=== PATIENT | male | born 1955 | race Hispanic/Latino ===

== ENCOUNTER 2020-08-07 12:33 | Emergency (ER) | payer SELFPAY ==
[2020-08-07 14:18] LABS: Absolute Lymphocytes (CBC) 1.3 K/uL (0.7-4.9); Basophils % 1.1 % (0-1.3); Hematocrit 44.3 % (39.6-49.0); Lymphocytes % 17.3 % (15.3-44.8); MPV 9.3 fL (7.6-11.3); RBC Red Blood Cell Count 4.81 M/uL (4.33-5.43)
[2020-08-07 14:25] LABS: Protime INR 1.04
[2020-08-07] MEDS ORDERED: AMLODIPINE 5 MG TAB ONE (14:41)
[2020-08-07] MEDS ORDERED: lisinopriL 10 MG TAB ONE (14:41)
[2020-08-07] MEDS ORDERED: hydroCHLOROthiazide 25 MG TAB ONE (14:42)
[2020-08-07 14:53] LABS: Albumin 3.6 g/dL (3.4-5.0); Bilirubin Direct 0.2 mg/dL (0-0.2); Bilirubin Total 0.5 mg/dL (0.2-1.0); Magnesium 2.5 mg/dL (1.8-2.4); Potassium 3.5 mmol/L (3.5-5.1); Protein, Total 7.7 g/dL (6.4-8.2)
--- NOTE | 2020-08-07 15:35 | EDPHYS ---
Physician Documentation [facility] Name: Kristian Elliott Age: 64 yrs Sex: Male : 1955 Arrival Date: 08/07/2020 Time: 12:35 Bed 2 Private MD: ED Physician Moises Cabrera HPI: 08/07 15:43 This 64 yrs old Male presents to ER via Ambulatory with complaints of Flu kb Symptoms. 15:43 The patient or guardian reports cough, that is intermittent, described as mild, with no kb sputum. Onset: The symptoms/episode began/occurred yesterday. Severity of symptoms: At their worst the symptoms were mild, in the emergency department the symptoms are unchanged. Modifying factors: The symptoms are alleviated by nothing, the symptoms are aggravated by nothing. Associated signs and symptoms: Pertinent positives: rhinorrhea, Pertinent negatives: chest pain, diarrhea, ear ache, fever, nausea, sore throat, vomiting. The patient has not experienced similar symptoms in the past. The patient has not recently seen a physician. Pt reports cough and runny nose that started yesterday. States he lives with his parents so he wanted to make sure it wasn't covid. States he has high blood pressure and is supposed to take medication, but he ran out of medication so he hasn't taken it in over a year. Denies chest pain, dizziness, headache, lightheadedness. Pt is asymptomatic of BP. Historical: - Allergies: 12:57 PENICILLINS; ca1 - Home Meds: 12:57 None [Active]; ca1 - PMHx: 12:57 Hypertension; ca1 - PSHx: 12:57 None; ca1 - Immunization history:: Adult Immunizations up to date, Flu vaccine is not up to date. - Social history:: Smoking status: Patient reports the use of cigarette tobacco products, denies chronic smoking, but will smoke occasionally. ROS: 15:42 Constitutional: Negative for fever, chills, and weight loss, Cardiovascular: Negative kb for chest pain, palpitations, and edema, Abdomen/GI: Negative for abdominal pain, nausea, vomiting, diarrhea, and constipation, Back: Negative for injury and pain, MS/Extremity: Negative for injury and deformity, Skin: Negative for injury, rash, and discoloration, Neuro: Negative for headache, weakness, numbness, tingling, and seizure. 15:42 ENT: Positive for rhinorrhea. 15:42 Respiratory: Positive for cough, Negative for dyspnea on exertion, hemoptysis, orthopnea, pleurisy, shortness of breath, sputum production, wheezing. Exam: 14:16 Constitutional: This is a well developed, well nourished patient who is awake, alert, kb and in no acute distress. Head/Face: Normocephalic, atraumatic. Chest/axilla: Normal chest wall appearance and motion. Nontender with no deformity. No lesions are appreciated. Cardiovascular: Regular rate and rhythm with a normal S1 and S2. No gallops, murmurs, or rubs. Normal PMI, no JVD. No pulse deficits. Abdomen/GI: Soft, non-tender, with normal bowel sounds. No distension or tympany. No guarding or rebound. No evidence of tenderness throughout. Back: No spinal tenderness. No costovertebral tenderness. Full range of motion. Skin: Warm, dry with normal turgor. Normal color with no rashes, no lesions, and no evidence of cellulitis. MS/ Extremity: Pulses equal, no cyanosis. Neurovascular intact. Full, normal range of motion. Neuro: Awake and alert, GCS 15, oriented to person, place, time, and situation. Cranial nerves II-XII grossly intact. Motor strength 5/5 in all extremities. Sensory grossly intact. Cerebellar exam normal. Normal gait. 14:16 ECG was reviewed by the Attending Physician. 14:18 Respiratory: the patient does not display signs of respiratory distress, Respirations: kb normal, Breath sounds: rhonchi, that are mild, are located in both bases. Vital Signs: 12:53 BP 221 / 147 LA; Pulse 92; Resp 18 S; Temp 97(TE); Pulse Ox 100% on R/A; Weight 72.12 ca1 kg (R); Height 5 ft. 6 in. (167.64 cm); Pain 0/10; 12:53 BP 225 / 147 RA; ca1 13:44 BP 222 / 158; Pulse 86; Resp 16; Pulse Ox 100% on R/A; iw 14:35 BP 203 / 130; Pulse 79; iw 15:28 BP 214 / 126; Pulse 79; Resp 16; Pulse Ox 100% on R/A; iw 12:53 Body Mass Index 25.66 (72.12 kg, 167.64 cm) ca1 MDM: 13:35 Patient medically screened. kb 14:16 Data reviewed: vital signs, nurses notes. Data interpreted: Pulse oximetry: on room air kb is 100 %. Interpretation: normal. 15:42 Counseling: I had a detailed discussion with the patient and/or guardian regarding: the kb historical points, exam findings, and any diagnostic results supporting the discharge/admit diagnosis, lab results, radiology results, the need for outpatient follow up, a family practitioner, to return to the emergency department if symptoms worsen or persist or if there are any questions or concerns that arise at home. 15:46 ED course: Pt given strict return precautions. New prescriptions given for medications kb that he was previously prescribed for management of hypertension. Pt still asymptomatic of BP. . 08/07 13:55 Order name: Basic Metabolic Panel; Complete Time: 14:55 kb 08/07 13:55 Order name: CBC with Diff; Complete Time: 14:24 kb 08/07 13:55 Order name: LFT's; Complete Time: 14:55 kb 08/07 13:55 Order name: Magnesium; Complete Time: 14:55 kb 08/07 13:55 Order name: NT PRO-BNP; Complete Time: 14:55 kb 08/07 13:55 Order name: PT-INR; Complete Time: 14:30 kb 08/07 13:55 Order name: EKG; Complete Time: 13:56 kb 08/07 13:55 Order name: Cardiac monitoring; Complete Time: 14:36 kb 08/07 13:55 Order name: Flu; Complete Time: 14:55 kb 08/07 13:55 Order name: Chest Single View XRAY kb 08/07 14:56 Order name: COVID-19 kb 08/07 13:55 Order name: EKG - Nurse/Tech; Complete Time: 14:11 kb 08/07 13:55 Order name: IV Saline Lock; Complete Time: 14:36 kb 08/07 13:55 Order name: Labs collected and sent; Complete Time: 14:36 kb 08/07 13:55 Order name: O2 Per Protocol; Complete Time: 14:36 kb 08/07 13:55 Order name: O2 Sat Monitoring; Complete Time: 14:36 kb 08/07 13:56 Order name: Misc. Order: [facility] in [place] to find out what HTN kb medication pt was previously prescribed; Complete Time: 14:25 EC:16 Rate is 77 beats/min. Rhythm is regular. QRS [place] is Normal. VT interval is normal at kb 184 msec. QRS interval is normal at 96 msec. QT interval is normal at 412 msec. Administered Medications: 14:30 Drug: amLODIPine 5 mg Route: PO; iw 14:30 Drug: Hydrochlorothiazide 25 mg Route: PO; iw 14:30 Drug: Lisinopril 30 mg Route: PO; iw Disposition: 16:09 Co-signature as Attending Physician, Moises Cabrera MD I agree with the assessment and kdr plan of care. Disposition: 08/07/20 15:34 Discharged to Home. Impression: Acute upper respiratory infection, unspecified, Essential (primary) hypertension. - Condition is Stable. - Discharge Instructions: Hypertension, Uush-hl-[id number], Viral Respiratory Infection, [id number]-[id number], DASH Eating Plan, Managing Your Hypertension, COVID-19. - Prescriptions for lisinopril 30 mg Oral tablet - take 1 tablet by ORAL route once daily; 20 tablet. Norvasc 5 mg Oral Tablet - take 1 tablet by ORAL route once daily; 20 tablet. Hydrochlorothiazide 25 mg Oral Tablet - take 1 tablet by ORAL route once daily .; 30 tablet. - Medication Reconciliation Form, Thank You Letter, Antibiotic Education, Prescription Opioid Use form. - Follow up: Emergency Department; When: As needed; Reason: Worsening of condition. Follow up: Private Physician; When: 2 - 3 days; Reason: Recheck today's complaints, Continuance of care, Re-evaluation by your physician. Signatures: Dispatcher [employer] EDGA Romi Land, PEREZ PADILLA-Moises Law MD MD kdr Williams, Irene, RN RN iw Ainsley Waldrop RN RN ca1 Corrections: (The following items were deleted from the chart) 15:50 15:34 08/07/2020 15:34 Discharged to Home. Impression: Acute upper respiratory iw infection, unspecified; Essential (primary) hypertension. Condition is Stable. Forms are Medication Reconciliation Form, Thank You Letter, Antibiotic Education, Prescription Opioid Use. Follow up: Emergency Department; When: As needed; Reason: Worsening of condition. Follow up: Private Physician; When: 2 - 3 days; Reason: Recheck today's complaints, Continuance of care, Re-evaluation by your physician. kb
--- NOTE | 2020-08-07 15:35 | ER ---
Nurse's Notes [facility] Name: Kristian Elliott Age: 64 yrs Sex: Male : 1955 Arrival Date: 08/07/2020 Time: 12:35 Bed 2 Private MD: Diagnosis: Acute upper respiratory infection, unspecified;Essential (primary) hypertension Presentation: 08/07 12:53 Chief complaint:. Coronavirus screen: Client denies travel out of the [place] in the last ca1 14 days. congestion, cough unrelated to allergies, Client presents with at least one sign or symptom that may indicate coronavirus-19. Standard/surgical mask placed on the client. Provider contacted for isolation considerations. Ebola Screen: Patient negative for fever greater than or equal to 101.5 degrees Fahrenheit, and additional compatible Ebola Virus Disease symptoms Patient denies exposure to infectious person. Patient denies travel to an Ebola-affected area in the 21 days before illness onset. No symptoms or risks identified at this time. Initial Sepsis Screen: Does the patient meet any 2 criteria? No. Patient's initial sepsis screen is negative. Does the patient have a suspected source of infection? No. Patient's initial sepsis screen is negative. Risk Assessment: Do you want to hurt yourself or someone else? Patient reports no desire to harm self or others. Onset of symptoms was August 07, 2020. 12:53 Method Of Arrival: Ambulatory ca1 12:53 Acuity: KIERAN 2 ca1 Historical: - Allergies: 12:57 PENICILLINS; ca1 - Home Meds: 12:57 None [Active]; ca1 - PMHx: 12:57 Hypertension; ca1 - PSHx: 12:57 None; ca1 - Immunization history:: Adult Immunizations up to date, Flu vaccine is not up to date. - Social history:: Smoking status: Patient reports the use of cigarette tobacco products, denies chronic smoking, but will smoke occasionally. Screenin:44 Abuse screen: Denies threats or abuse. Denies injuries from another. Nutritional iw screening: No deficits noted. Tuberculosis screening: No symptoms or risk factors identified. Fall Risk None identified. Assessment: 13:43 General: Appears in no apparent distress. Behavior is calm, cooperative. Pain: Denies iw pain. Neuro: Level of Consciousness is awake, alert, obeys commands, Oriented to person, place, time, situation, Moves all extremities. Full function. Cardiovascular: Patient's skin is warm and dry. Respiratory: Respiratory effort is even, unlabored, Respiratory pattern is regular, symmetrical. Respiratory: Reports cough that is productive. GI: Abdomen is non-distended. Derm: Skin is intact, is healthy with good turgor. Musculoskeletal: No signs and/or symptoms reported regarding the musculoskeletal system. Range of motion: intact in all extremities. 15:14 Reassessment: Patient appears in no apparent distress at this time. Patient and/or iw family updated on plan of care and expected duration. Pain level reassessed. Patient is alert, oriented x 3, equal unlabored respirations, skin warm/dry/pink. pt still hypertensive. Vital Signs: 12:53 BP 221 / 147 LA; Pulse 92; Resp 18 S; Temp 97(TE); Pulse Ox 100% on R/A; Weight 72.12 ca1 kg (R); Height 5 ft. 6 in. (167.64 cm); Pain 0/10; 12:53 BP 225 / 147 RA; ca1 13:44 BP 222 / 158; Pulse 86; Resp 16; Pulse Ox 100% on R/A; iw 14:35 BP 203 / 130; Pulse 79; iw 15:28 BP 214 / 126; Pulse 79; Resp 16; Pulse Ox 100% on R/A; iw 12:53 Body Mass Index 25.66 (72.12 kg, 167.64 cm) ca1 ED Course: 12:35 Patient arrived in ED. ag5 12:57 Triage completed. ca1 12:57 Arm band placed on right wrist. ca1 13:35 [facility] kb 13:35 Moises Cabrera MD is Attending Physician. kb 13:41 Shea Villanueva, CHRISTAL is Primary Nurse. iw 13:45 Patient has correct armband on for positive identification. iw 14:08 Initial lab(s) drawn, by me, sent to lab. Inserted saline lock: 20 gauge in right iw antecubital area, using aseptic technique. Blood collected. 14:11 EKG done, by ED staff, reviewed by Romi TODD. em1 14:54 Chest Single View XRAY In Process Unspecified. EDMS 15:49 No provider procedures requiring assistance completed. IV discontinued, intact, iw bleeding controlled, No redness/swelling at site. Pressure dressing applied. Administered Medications: 14:30 Drug: amLODIPine 5 mg Route: PO; iw 14:30 Drug: Hydrochlorothiazide 25 mg Route: PO; iw 14:30 Drug: Lisinopril 30 mg Route: PO; iw Outcome: 15:34 Discharge ordered by . carisa 15:49 Discharged to home ambulatory. iw 15:49 Condition: good 15:49 Discharge instructions given to patient, Instructed on discharge instructions, follow up and referral plans. medication usage, Demonstrated understanding of instructions, follow-up care, medications, Prescriptions given X 2. 15:50 Patient left the ED. iw Addendum: 08/09/2020 15:36 Addendum: COVID-19 Result: Negative result given to RN to notify pt. Attempted to i w contact pt regarding negative COVID-19 swab results. Left voice mail. Signatures: Dispatcher [employer] EDMS Romi Land, VALERIE-C VALERIE-Shea Lynne RN RN iw Alexis Maria em1 Ainsley Waldrop RN RN ca1 Mary Sheth ag5 Corrections: (The following items were deleted from the chart) 1202 12:58 12:53 Acuity: KIERAN 3 ca1 ca1 12:58 12:53 Pulse 92bpm; Resp 18bpm; Spontaneous; Pulse Ox 100% RA; Temp 97F Temporal; 72.12 ca1 kg Reported; Height 5 ft. 6 in.; BMI: 25.6; Pain 0/10; ca1 12:59 12:53 BP 221 / 147; Pulse 92bpm; Resp 18bpm; Spontaneous; Pulse Ox 100% RA; Temp 97F ca1 Temporal; 72.12 kg Reported; Height 5 ft. 6 in.; BMI: 25.6; Pain 0/10; ca1
--- NOTE | 2020-08-07 15:57 | RAD REPORT ---
EXAM DESCRIPTION: RAD - Chest Single View - 08/07/2020 2:54 pm CLINICAL HISTORY: COUGH COMPARISON: October 2016 TECHNIQUE: AP portable chest image was obtained 08/07/2020 2:54 pm . FINDINGS: Lungs are clear. Heart size is upper normal, increased from the prior study. Heart size is accentuated by shallow inspiratory effort. Shallow inspiration also causes increased tortuosity of t he aorta. Interstitial pattern is not clearly different when adjusting for inspiratory effort. No kristine surable pleural effusion and no pneumothorax. No acute bony abnormality seen. No acute aortic finding s suspected. IMPRESSION: No acute lung parenchymal process. No failure or volume overload. Heart size is accentuated by shallow inspiration slight amount of rotation.
--- NOTE | 2020-08-08 06:09 | EKG ---
Test Date: 2020-08-07 Test Time: 14:06:05 Scrap Piler: DIANNA MEASUREMENT RESULTS: Intervals: Rate: 77 MN: 184 QRSD: 96 QT: 412 QTc: 466 Dawn: P: 46 MN: 184 QRS: -1 T: -17 INTERPRETIVE STATEMENTS: Normal sinus rhythm Left ventricular hypertrophy with repolarization abnormality Abnormal ECG Compared to ECG 10/21/2016 11:10:24 Early repolarization now present Left-axis deviation no longer present Myocardial infarct finding no longer present ST (T wave) deviation no longer present Possible ischemia no longer present Electronically Signed On 08-08-20 06:07:20 CRUSHING MILL OPERATOR by Derek Huang
== END 2020-08-07 15:50 | disposition home or self-care (01) ==
LOC: ER 12:33
DX: J06.9 Acute upper respiratory infection, unspecified (principal); Z20.828 Contact with and (suspected) exposure to other viral communicable diseases; I10 Essential (primary) hypertension; F17.210 Nicotine dependence, cigarettes, uncomplicated; Z88.0 Allergy status to penicillin
CPT/HCPCS: 36415; 71045; 80048; 80076; 83735; 83880; 85025; 85610; 87804; 93005; 99284; U0002

== ENCOUNTER 2020-08-11 19:58 | Emergency (ER) | payer OTHER, SELFPAY ==
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
[2020-08-11 21:28] LABS: Absolute Lymphocytes (CBC) 1.3 K/uL (0.7-4.9); Basophils % 0.6 % (0-1.3); Hematocrit 44.8 % (39.6-49.0); MPV 9.6 fL (7.6-11.3); RBC Red Blood Cell Count 4.82 M/uL (4.33-5.43)
[2020-08-11 21:54] LABS: Potassium 3.4 mmol/L (3.5-5.1)
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
[2020-08-15 15:44] VITALS: TEMP 98.1; O2SAT 98
[2020-08-15 15:46] VITALS: BP 158/89
== END 2020-08-11 22:45 | disposition home or self-care (01) ==
LOC: ER 19:58
DX: R41.82 Altered mental status, unspecified (principal); Z20.828 Contact with and (suspected) exposure to other viral communicable diseases; V49.49XA Driver injured in collision with other motor vehicles in traffic accident, initial encounter; I10 Essential (primary) hypertension; F17.210 Nicotine dependence, cigarettes, uncomplicated; Z88.0 Allergy status to penicillin
CPT/HCPCS: 36415; 70450; 72125; 80048; 80320; 85025; 86850; 86900; 86901; 99284

== ENCOUNTER 2021-03-11 19:29 | Emergency (ER) | payer SELFPAY ==
[2021-03-11 23:11] LABS: Absolute Lymphocytes (CBC) 1.8 K/uL (0.7-4.9); Hematocrit 41.1 % (39.6-49.0); Lymphocytes % 28.1 % (15.3-44.8); MPV 9.1 fL (7.6-11.3)
[2021-03-11 23:17] LABS: Protime INR 0.95
[2021-03-11] MEDS ORDERED: ONDANSETRON 4 MG/2 ML VIAL ONE (23:19)
[2021-03-11] MEDS ORDERED: MORPHINE 4 MG/ML SYR ONE (23:19)
[2021-03-11 23:33] LABS: ALT/SGPT 16 U/L (12-78); AST/SGOT 12 U/L (15-37); Albumin 3.5 g/dL (3.4-5.0); Alkaline Phosphatase 62 U/L (45-117); BUN Blood Urea Nitrogen 17 mg/dL (7-18); Bicarbonate 29 mmol/L (21-32); Bilirubin Direct < 0.1 mg/dL (0-0.2); Bilirubin Total 0.3 mg/dL (0.2-1.0); Glucose Level 92 mg/dL (74-106); Potassium 3.4 mmol/L (3.5-5.1); Protein, Total 7.4 g/dL (6.4-8.2); Sodium Level 141 mmol/L (136-145)
[2021-03-11 23:43] LABS: Urine Blood Negative (Negative); Urine Glucose Negative (Negative); Urine Protein Negative (Negative); Urine Specific Gravity 1.015 (1.005-1.030); Urine pH 5.5 (5.0-7.0)
--- NOTE | 2021-03-12 01:06 | ER ---
Nurse's Notes [facility] Name: Kristian Elliott Age: 65 yrs Sex: Male : 1955 Arrival Date: 03/11/2021 Time: 19:33 Bed 27 Private MD: Diagnosis: Fall-Mechanical;Abrasion, Bilateral Knee;Contusion, Back;Sprain, Back Presentation: 03/11 19:48 Chief complaint: Patient states: Pt fell 03/08/2021 at the [facility] parking lot; fell vg1 onto CYNTHIA knees and CYNTHIA hands; denies hitting head. Today pt Lower Back began hurting. Coronavirus screen: Client denies travel out of the [place] in the last 14 days. Ebola Screen: Patient negative for fever greater than or equal to 101.5 degrees Fahrenheit, and additional compatible Ebola Virus Disease symptoms. Initial Sepsis Screen: Does the patient meet any 2 criteria? No. Patient's initial sepsis screen is negative. Does the patient have a suspected source of infection? No. Patient's initial sepsis screen is negative. Risk Assessment: Do you want to hurt yourself or someone else? Patient reports no desire to harm self or others. Onset of symptoms was March 08, 2021. 19:48 Method Of Arrival: Ambulatory vg1 19:48 Acuity: KIERAN 3 vg1 03/12 04:58 Care prior to arrival: None. Mechanism of Injury: Fall from standing position. Trauma ad1 event details: Injury occurred in the [facility], Injury occurred: parking lot of [facility]. Triage Assessment: 03/11 19:50 General: Appears in no apparent distress. comfortable, Behavior is calm, cooperative. vg1 Pain: Complains of pain in CYNTHIA knees and lower back. Historical: - Allergies: 19:50 PENICILLINS; vg1 - Home Meds: 19:50 lisinopril Oral [Active]; vg1 - PMHx: 19:50 Hypertension; vg1 - Immunization history:: Adult Immunizations up to date, Client reports receiving the 2nd dose of the Covid vaccine. - Social history:: Smoking status: Patient reports the use of cigarette tobacco products, smokes one pack cigarettes per day. Screenin/07 04:55 Abuse screen: Denies threats or abuse. Tuberculosis screening: No symptoms or risk ad1 factors identified. Primary Survey: 04:58 NO uncontrolled hemorrhage observed. A: Airway: patent. Breathing/Chest: Respiratory ad1 pattern: regular, Respiratory effort: no effort. Assessment: 03/11 22:29 General: Appears in no apparent distress. Behavior is calm, cooperative. Pain: ad1 Complains of pain in lower back Pain does not radiate. Pain currently is 8 out of 10 on a pain scale. Pain began Wednesday Aggravated by activity. Neuro: No deficits noted. EENT: No deficits noted. Cardiovascular: Heart tones S1 S2. Respiratory: No deficits noted. Breath sounds are clear. GI: No signs and/or symptoms were reported involving the gastrointestinal system. : No signs and/or symptoms were reported regarding the genitourinary system. Derm: abrasions noted to bilateral knees from reported fall on Wednesday from tripping over a cord. 23:13 Reassessment: Patient appears in no apparent distress at this time. No changes from ad1 previously documented assessment. Patient and/or family updated on plan of care and expected duration. Pain level reassessed. Patient is alert, oriented x 3, equal unlabored respirations, skin warm/dry/pink. patient returned from CT now, pain and nausea meds administered. 23:47 Reassessment: Patient and/or family updated on plan of care and expected duration. Pain ad1 level reassessed. Patient is alert, oriented x 3, equal unlabored respirations, skin warm/dry/pink. Reassessment: Patient appears in no apparent distress at this time. Pain: Denies pain. 03/12 00:46 Reassessment: Patient appears in no apparent distress at this time. No changes from ad1 previously documented assessment. Patient and/or family updated on plan of care and expected duration. Pain level reassessed. Patient is alert, oriented x 3, equal unlabored respirations, skin warm/dry/pink. states no pain or needs at this time. Vital Signs: 03/11 10:20 BP 185 / 85; Pulse 57; Resp 18; Pulse Ox 100% ; Pain 8/10; ad1 19:48 BP 173 / 88; Pulse 78; Resp 18; Temp 98.4; Pulse Ox 100% ; Weight 68.04 kg; Height 5 vg1 ft. 6 in. (167.64 cm); Pain 5/10; 23:12 BP 151 / 78; Pulse 71; Resp 18; Pulse Ox 100% ; Pain 8/10; ad1 23:48 BP 147 / 88; Pulse 68; Resp 16; Pulse Ox 99% ; Pain 0/10; ad1 03/12 00:43 BP 127 / 75; Pulse 60; Resp 16; Pulse Ox 99% ; Pain 0/10; ad1 03/11 19:48 Body Mass Index 24.21 (68.04 kg, 167.64 cm) vg1 [place] Coma Score: 04:55 Eye Response: spontaneous(4). Verbal Response: oriented(5). Motor Response: obeys ad1 commands(6). Total: 15. Trauma Score (Adult): 04:55 Eye Response: spontaneous(1); Verbal Response: oriented(1); Motor Response: obeys ad1 commands(2); Systolic BP: > 89 mm Hg(4); Respiratory Rate: 10 to 29 per min(4); [place] Score: 15; Trauma Score: 12 ED Course: 03/11 19:33 Patient arrived in ED. bp1 19:50 Triage completed. vg1 19:50 Arm band placed on. vg1 21:25 Demond Roach MD is Attending Physician. mh7 22:49 CT Abd/Pelvis - Without Contrast In Process Unspecified. EDMS 23:03 Inserted saline lock: 20 gauge in right antecubital area, using aseptic technique. dh4 Blood collected. 03/12 01:15 IV discontinued. ad1 04:55 Patient has correct armband on for positive identification. Bed in low position. Call ad1 light in reach. Side rails up X 1. 04:55 Patient maintains SpO2 saturation greater than 95% on room air. ad1 Administered Medications: 03/11 23:11 Drug: morphine 4 mg Route: IVP; Site: right antecubital; ad1 03/12 01:29 Follow up: Response: No adverse reaction; Pain is decreased ad1 03/11 23:11 Drug: Zofran (Ondansetron) 4 mg Route: IVP; Site: right antecubital; ad1 03/12 01:28 Follow up: Response: No adverse reaction ad1 Output: 04:55 Urine: 300ml; Total: 300ml. ad1 Outcome: 01:05 Discharge ordered by . 7 01:25 Discharged to home ad1 01:25 Condition: good 01:25 Discharge instructions given to patient, Instructed on discharge instructions, follow up and referral plans. medication usage, Demonstrated understanding of instructions, follow-up care, medications, Prescriptions given X 2. 01:26 Patient left the ED. ad1 Signatures: Dispatcher [employer] EDChelsea Martin RN RN ad1 Zac Bell 4 Olivia Davila RN RN vg1 Eve Rodriges Maurice, MD MD 7
--- NOTE | 2021-03-12 01:06 | EDPHYS ---
Physician Documentation [facility] Name: Kristian Elliott Age: 65 yrs Sex: Male : 1955 Arrival Date: 03/11/2021 Time: 19:33 Bed 27 Private MD: ED Physician Demond Roach HPI: 03/11 23:35 This 65 yrs old Male presents to ER via Ambulatory with complaints of Fall mh7 Injury, Back Pain, Leg Pain. 23:35 Details of fall: The patient fell from an upright position, while walking, tripped, and mh7 struck a concrete surface. Onset: The symptoms/episode began/occurred 3 day(s) ago. Associated injuries: The patient sustained injury to the low back, pain, pain with movement, left knee and right knee, abrasion. Severity of symptoms: At their worst the symptoms were moderate, 2 day(s) ago, back pain, no knee pain, in the emergency department the symptoms are unchanged. States he tripped and fell in a parking lot onto his knees. He complains of lower back pain. Knee pain has mostly resolved and has scabs present. Denies any other injuries, Denies symptoms prior to falling.. Historical: - Allergies: 19:50 PENICILLINS; vg1 - Home Meds: 19:50 lisinopril Oral [Active]; vg1 - PMHx: 19:50 Hypertension; vg1 - Immunization history:: Adult Immunizations up to date, Client reports receiving the 2nd dose of the Covid vaccine. - Social history:: Smoking status: Patient reports the use of cigarette tobacco products, smokes one pack cigarettes per day. ROS: 23:35 Constitutional: Negative for fever, chills, and weight loss, Eyes: Negative for injury, mh7 pain, redness, and discharge, ENT: Negative for injury, pain, and discharge, Neck: Negative for injury, pain, and swelling, Cardiovascular: Negative for chest pain, palpitations, and edema, Respiratory: Negative for shortness of breath, cough, wheezing, and pleuritic chest pain, Abdomen/GI: Negative for abdominal pain, nausea, vomiting, diarrhea, and constipation, : Negative for injury, bleeding, discharge, and swelling, Neuro: Negative for headache, weakness, numbness, tingling, and seizure, Psych: Negative for depression, anxiety, suicide ideation, homicidal ideation, and hallucinations, Allergy/Immunology: Negative for hives, rash, and allergies, Endocrine: Negative for neck swelling, polydipsia, polyuria, polyphagia, and marked weight changes, Hematologic/Lymphatic: Negative for swollen nodes, abnormal bleeding, and unusual bruising. Exam: 23:35 Constitutional: This is a well developed, well nourished patient who is awake, alert, mh7 and in no acute distress. Head/Face: Normocephalic, atraumatic. Eyes: Pupils equal round and reactive to light, extra-ocular motions intact. Lids and lashes normal. Conjunctiva and sclera are non-icteric and not injected. Cornea within normal limits. Periorbital areas with no swelling, redness, or edema. Neck: Trachea midline, no thyromegaly or masses palpated, and no cervical lymphadenopathy. Supple, full range of motion without nuchal rigidity, or vertebral point tenderness. No Meningismus. Chest/axilla: Normal chest wall appearance and motion. Nontender with no deformity. No lesions are appreciated. Cardiovascular: Regular rate and rhythm with a normal S1 and S2. No gallops, murmurs, or rubs. Normal PMI, no JVD. No pulse deficits. Respiratory: Lungs have equal breath sounds bilaterally, clear to auscultation and percussion. No rales, rhonchi or wheezes noted. No increased work of breathing, no retractions or nasal flaring. Abdomen/GI: Soft, non-tender, with normal bowel sounds. No distension or tympany. No guarding or rebound. No evidence of tenderness throughout. 23:35 Neuro: Awake and alert, GCS 15, oriented to person, place, time, and situation. Cranial nerves II-XII grossly intact. Motor strength 5/5 in all extremities. Sensory grossly intact. Cerebellar exam normal. Normal gait. Psych: Awake, alert, with orientation to person, place and time. Behavior, mood, and affect are within normal limits. 23:35 Back: pain, that is moderate, of the lumbar area and right flank, ROM is painful, with flexion, normal spinal alignment noted, CVA tenderness, that is mild, is noted on the right, vertebral tenderness, is appreciated at lumbar area, muscle spasm, is not present, Straight leg raises: of both lower extremities does not illicit pain. 23:35 Musculoskeletal/extremity: Extremities: noted in the right knee and left knee: abrasion, ROM: intact in all extremities, Circulation is intact in all extremities. Sensation intact. Compartment Syndrome exam of affected extremity: is normal. no pain, no numbness, no tingling, no sensation deficit, no palor, no weak pulses, Joints: All joints appear normal with full range of motion. Weight bearing: able to fully bear weight, without difficulty, Tendon exam: specific tendon testing normal through active and passive range of motion 23:35 Skin: injury, abrasion(s), small abrasion noted, of the right knee and left knee. Vital Signs: 10:20 BP 185 / 85; Pulse 57; Resp 18; Pulse Ox 100% ; Pain 8/10; ad1 19:48 BP 173 / 88; Pulse 78; Resp 18; Temp 98.4; Pulse Ox 100% ; Weight 68.04 kg; Height 5 vg1 ft. 6 in. (167.64 cm); Pain 5/10; 23:12 BP 151 / 78; Pulse 71; Resp 18; Pulse Ox 100% ; Pain 8/10; ad1 23:48 BP 147 / 88; Pulse 68; Resp 16; Pulse Ox 99% ; Pain 0/10; ad1 03/12 00:43 BP 127 / 75; Pulse 60; Resp 16; Pulse Ox 99% ; Pain 0/10; ad1 03/11 19:48 Body Mass Index 24.21 (68.04 kg, 167.64 cm) vg1 Jimbo Coma Score: 04:55 Eye Response: spontaneous(4). Verbal Response: oriented(5). Motor Response: obeys ad1 commands(6). Total: 15. Trauma Score (Adult): 04:55 Eye Response: spontaneous(1); Verbal Response: oriented(1); Motor Response: obeys ad1 commands(2); Systolic BP: > 89 mm Hg(4); Respiratory Rate: 10 to 29 per min(4); [place] Score: 15; Trauma Score: 12 MDM: 01:03 Differential diagnosis: abrasion, contusion, fracture. Data reviewed: vital signs, [facility] nurses notes, lab test result(s), CBC, electrolytes, urinalysis, radiologic studies, CT scan. Counseling: I had a detailed discussion with the patient and/or guardian regarding: the historical points, exam findings, and any diagnostic results supporting the discharge/admit diagnosis, lab results, radiology results, the need for outpatient follow up, to return to the emergency department if symptoms worsen or persist or if there are any questions or concerns that arise at home. Response to treatment: the patient's symptoms have markedly improved after treatment. 01:05 Patient medically screened. [facility] 03/11 22:29 Order name: CBC with Diff [facility] 03/11 22:29 Order name: Basic Metabolic Panel [facility] 03/11 22:29 Order name: LFT's [facility] 03/11 22:29 Order name: Protime (+inr) [facility] 03/11 22:29 Order name: Ptt, Activated; Complete Time: 23:58 [facility] 03/11 22:30 Order name: CBC with Automated Diff; Complete Time: 23:58 [facility] 03/11 22:29 Order name: CT Abd/Pelvis - Without Contrast [facility] 03/11 22:30 Order name: Basic Metabolic Panel; Complete Time: 23:58 [facility] 03/11 22:30 Order name: Liver (Hepatic) Function; Complete Time: 23:58 [facility] 03/11 22:30 Order name: Protime (+INR); Complete Time: 23:58 [facility] 03/11 23:43 Order name: Urine Dipstick-Ancillary; Complete Time: 23:58 [facility] 03/11 22:29 Order name: Urine Dipstick-Ancillary (obtain specimen); Complete Time: 23:46 [facility] 03/11 22:29 Order name: Saline Lock; Complete Time: 23:19 [facility] Administered Medications: 03/11 23:11 Drug: morphine 4 mg Route: IVP; Site: right antecubital; ad1 03/12 01:29 Follow up: Response: No adverse reaction; Pain is decreased ad1 03/11 23:11 Drug: Zofran (Ondansetron) 4 mg Route: IVP; Site: right antecubital; ad1 03/12 01:28 Follow up: Response: No adverse reaction ad1 Disposition Summary: 03/12/21 01:05 Discharge Ordered Location: Home [facility] Problem: new [facility] Symptoms: have improved [facility] Condition: Stable [facility] Diagnosis - Fall-Mechanical 7 - Abrasion, Bilateral Knee 7 - Contusion, Back 7 - Sprain, Back mh7 Followup: mh7 - With: Private Physician - When: 1 - 2 days - Reason: Worsening of condition, Recheck today's complaints, Continuance of care, Re-evaluation by your physician Discharge Instructions: - Discharge Summary Sheet [facility] - Acute Back Pain, Adult [facility] - Contusion, [id number] [facility] - Abrasion, [id number] [facility] - Fall Prevention in the Home, Adult, [id number] [facility] Forms: - Medication Reconciliation Form [facility] - Thank You Letter [facility] - Antibiotic Education [facility] - Prescription Opioid Use [facility] Prescriptions: - Colace 100 mg Oral Tablet - take 1 tablet by ORAL route every 12 hours; 14 tablet; Refills: 0, Product [facility] Selection Permitted - Tramadol 50 mg Oral Tablet - take 1 tablet by ORAL route every 8 hours as needed; 12 tablet; Refills: 0, [facility] Product Selection Permitted Signatures: Dispatcher [employer] EDChelsea Martin RN RN ad1 Olivia Davila RN RN vg1 Demond Roach MD MD [facility] Corrections: (The following items were deleted from the chart) 03/11 22:41 22:30 Spine Lumbar Wo Con+[id number].RAD.BRZ ordered. EDMS EDMS
[2021-03-12 01:46] VITALS: TEMP 98.4
[2021-03-12 01:50] VITALS: O2SAT 99
[2021-03-12 01:52] VITALS: BP 127/75
--- NOTE | 2021-03-12 13:43 | RAD REPORT ---
EXAM DESCRIPTION: CT - Abdomen Pelvis Wo Contrast - 03/12/2021 6:34 am COMPARISON: None. CLINICAL HISTORY: FLANK PAIN TECHNIQUE: CT of the abdomen and pelvis was acquired without IV contrast material. Coronal and sag ittal reconstructions were obtained. Automated exposure control was utilized on this examination as a dose lowering technique. FINDINGS: Lung bases: Clear. *Evaluation of solid organs is limited due to lack of IV contrast. Liver: Multiple hepatic cysts measure up to 5.1 cm. Gallbladder and biliary: A large lamellated gallstone measures 4.7 cm. Unremarkable biliary tree. Pancreas: Normal. Spleen: Normal. Adrenal glands: Normal adrenal glands. Kidneys: Left renal cysts measure up to 2.3 cm. Stomach and Small Bowel: The stomach and small bowel are normal. Urinary bladder: Normal. Prostate/Male Urogenital: Enlarged measuring 5.7 cm mediolateral. Colon and Appendix: Mild colonic diverticulosis. No evidence of appendicitis. Retroperitoneum and lymph nodes: Normal. Vascular: Severe multivessel calcified atherosclerosis. Peritoneal cavity: No ascites or free air. Musculoskeletal and soft tissues: Soft tissues are unremarkable. A few scattered nonaggressive appear ing sclerotic lesions likely represent benign bone islands. No aggressive bone lesions. No compress ion fracture. IMPRESSION: 1. No acute intra-abdominal abnormality. 2. Large gallstone. 3. Prostatic hypertrophy. 4. Severe atherosclerosis. Electronically signed by: René Pino MD 03/11/2021 11:25 PM CDT Due to temporary technical issues with the PACS/Fluency reporting system, reports are being signed by the in house radiologist without review as a courtesy to ensure prompt reporting. The interpreting r adiologist is fully responsible for the content of the report.
== END 2021-03-12 01:26 | disposition home or self-care (01) ==
LOC: ER 19:29
DX: S33.5XXA Sprain of ligaments of lumbar spine, initial encounter (principal); S80.212A Abrasion, left knee, initial encounter; S80.211A Abrasion, right knee, initial encounter; S30.0XXA Contusion of lower back and pelvis, initial encounter; W18.39XA Other fall on same level, initial encounter; I10 Essential (primary) hypertension; F17.210 Nicotine dependence, cigarettes, uncomplicated; Z88.0 Allergy status to penicillin
CPT/HCPCS: 85025; 80048; 36415; 85610; 80076; 85730; 81003; 74176; 96375; 96374; 99284; J2405